=== PATIENT | female | born 1995 | race Caucasian/White ===

== ENCOUNTER 2020-01-01 12:46 | Emergency (ER) | payer OTHER ==
[~2020-01-01] VITALS: Ht 152.4 cm; Wt 115.6 kg
[2020-01-01] MEDS ORDERED: VIT B (12:59)
[2020-01-01] MEDS ORDERED: prenatal (12:59)
[2020-01-01] MEDS ORDERED: UNASOM (12:59)
[2020-01-01] MEDS ORDERED: zofran (12:59)
[2020-01-01] MEDS ORDERED: NS 1,000 ML IV SCH (13:14)
[2020-01-01 13:57] LABS: BASO % 0.2 % (0.0-1.0); EOS # 0.1 10^3/uL (0.0-0.5); HEMATOCRIT 38.3 % (36.0-47.0); HEMOGLOBIN 12.6 g/dl (12.0-15.5); LYMPH # 1.4 10^3/uL (1.5-5.0); LYMPH % 15.8 % (24.0-44.0); MEAN CORPUSCULAR HEMOGLOBIN 27.8 pg (27.0-33.0); MEAN CORPUSCULAR HGB CONC 32.9 g/dl (32.0-36.5); MEAN CORPUSCULAR VOLUME 84.5 fl (80.0-96.0); MONO # 0.5 10^3/uL (0.0-0.8); MONO % 6.1 % (0.0-5.0); NEUTROPHILS # 6.7 10^3/uL (1.5-8.5); NEUTROPHILS % 76.3 % (36.0-66.0); PLATELET COUNT, AUTOMATED 219 10^3/uL (150-450); RED BLOOD COUNT 4.53 10^6/uL (4.00-5.40); WHITE BLOOD COUNT 8.7 10^3/uL (4.0-10.0)
[2020-01-01 14:08] LABS: INR 1.05; PROTHROMBIN TIME 13.9 SECONDS (12.5-14.3)
--- NOTE | 2020-01-01 14:08 | REPVR ---
PROCEDURE INFORMATION: Exam: US Abdomen, Limited; Right Upper Quadrant Exam date and time: 01/01/2020 1:55 PM Age: 24 years old Clinical indication: Abdominal pain; Epigastric; ; Additional info: Right upper quadrant pain TECHNIQUE: Imaging protocol: US abdomen. Real time ultrasound with image documentation. Limited exam focused on the right upper quadrant. COMPARISON: No relevant prior studies available. FINDINGS: Liver: Diffuse increased echogenicity of the liver suggestive of fatty infiltration. No hepatic mass is imaged. Gallbladder: No abnormal gallbladder dilation. No pericholecystic fluid. No abnormal gallbladder wall thickening. No gallstones. Common bile duct: Common bile duct diameter = 0.4 cm. No intrahepatic or extrahepatic bile duct dilation is imaged. Pancreas: The pancreas is incompletely visualized. The visualized portions of the pancreas are unremarkable. Right kidney: Right kidney length = 11.8 cm. No right hydronephrosis. No right renal mass is imaged. Intraperitoneal space: No free intraperitoneal fluid is imaged. IMPRESSION: Findings suggestive of hepatic steatosis. Electronically signed by: Martinez Aaron On 01/01/2020 14:08:09 PM
[2020-01-01 14:17] LABS: ALBUMIN 3.2 GM/DL (3.2-5.2); ALT/SGPT 16 U/L (12-78); AMYLASE 46 U/L (25-115); BILIRUBIN,DIRECT < 0.1 MG/DL (0.0-0.2); BILIRUBIN,TOTAL 0.2 MG/DL (0.2-1.0); BLOOD UREA NITROGEN 9 MG/DL (7-18); CALCIUM LEVEL 8.9 MG/DL (8.5-10.1); CARBON DIOXIDE LEVEL 24 MEQ/L (21-32); CHLORIDE LEVEL 105 MEQ/L (98-107); CREATININE FOR GFR 0.63 MG/DL (0.55-1.30); GLOMERULAR FILTRATION RATE > 60.0 (>60); GLUCOSE, FASTING 79 MG/DL (70-100); LIPASE 100 U/L (73-393); SODIUM LEVEL 138 MEQ/L (136-145); TOTAL PROTEIN 6.7 GM/DL (6.4-8.2)
[2020-01-01 15:15] LABS: HCG, SERUM QUANTITATIVE 41585 MIU/ML
[2020-01-01 15:47] VITALS: BP 125/58
== END 2020-01-01 16:05 | disposition home or self-care (01) ==
LOC: M ED 12:46
DX: K80.63 Calculus of gallbladder and bile duct with acute cholecystitis with obstruction (principal); Z88.0 Allergy status to penicillin